=== PATIENT | female | born 1965 | race Caucasian/White ===

== ENCOUNTER → 2021-09-30 | Outpatient (CLI) | payer OTHER ==
--- NOTE | 2021-10-01 08:33 | MR ---
EXAMINATION TYPE: MR knee RT wo con DATE OF EXAM: 09/30/2021 COMPARISON: Plain film 09/03/2021 HISTORY: M25.561 Pain in right knee, medial side, locking TECHNIQUE: Multiplanar, multisequence imaging of the right knee is performed without IV contrast. FINDINGS: MEDIAL MENISCUS: Posterior horn of the medial meniscus shows some increased signal which is somewhat diffuse, there is some linear increased signal extends the articular under surface, coronal image 22, sagittal image 10. LATERAL MENISCUS: Anterior and posterior horns are intact without tear. CRUCIATE LIGAMENTS: The anterior and posterior cruciate ligaments are intact and unremarkable. COLLATERAL LIGAMENTS: The medial collateral ligament and lateral collateral ligament complex are inta ct and unremarkable. EXTENSOR MECHANISM: Visualized quadriceps and patellar tendons are intact. EFFUSION: There is a suprapatellar knee joint effusion POPLITEAL CYST: No popliteal/goldsmith cyst. 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 OTHER: There is some subcutaneous edema change IMPRESSION: Degenerative signal is present in the posterior horn of the medial meniscus, possible degenerative te ar. Mild osteoarthritic changes. Knee joint effusion.
== END | disposition home or self-care (01) ==
LOC: RADMRIMAIN 14:34
PROVIDERS: ATTEND Orthopaedic Surgery
DX: M17.11 Unilateral primary osteoarthritis, right knee (principal); M25.461 Effusion, right knee